=== PATIENT | female | born 1965 | race Caucasian/White ===

== ENCOUNTER 2022-08-11 11:07 | Emergency (ER) | payer OTHER ==
[2022-08-11 11:20] VITALS: RESP 18; TEMP 99.1
--- NOTE | 2022-08-11 12:08 | ED ---
General Adult HPI - General Chief complaint: Extremity Injury, Lower Stated complaint: L knee swelling Time Seen by Provider: 08/11/22 11:27 Source: patient, RN notes reviewed Mode of arrival: ambulatory Limitations: no limitations - History of Present Illness Initial comments: 57-year-old female presents to the emergency department chief complaint of knee pain and swelling 1 day. Past medical history includes fibromyalgia, osteoarthritis. She states that she has had steroid injections in the knee in the past. The last time she had this done was about 8 weeks ago. She states that the pain is worse with walking. She reports she is able to bend at the knee. She also states that about 2 days ago she stepped on her left foot and felt like she heard a crunch. She is reporting some mild tenderness to the lateral portion of her foot. She states that she has Lyrica that she takes for fibromyalgia pain and states that she took this this morning which helped some. She denies numbness, tingling, fever, chills, shortness of breath, chest pain. - Related Data Allergies Allergy/AdvReac Type Severity Reaction Status Date / Time sulfamethoxazole Allergy Rash/Hives Verified 08/11/22 11:20 [From Bactrim] trimethoprim [From Bactrim] Allergy Rash/Hives Verified 08/11/22 11:20 Review of Systems ROS Statement: Those systems with pertinent positive or pertinent negative responses have been documented in the HPI. ROS Other: All systems not noted in ROS Statement are negative. Past Medical History Past Medical History: Rheumatoid Arthritis (RA) Additional Past Medical History / Comment(s): SVT, Fibromyalgia History of Any Multi-Drug Resistant Organisms: None Reported Past Surgical History: No Surgical Hx Reported Past Psychological History: No Psychological Hx Reported Smoking Status: Current every day smoker Past Alcohol Use History: Occasional Past Drug Use History: None Reported General Exam Limitations: no limitations General appearance: alert, in no apparent distress Head exam: Present: atraumatic, normocephalic, normal inspection Eye exam: Present: normal appearance, PERRL, EOMI. Absent: scleral icterus, conjunctival injection, periorbital swelling ENT exam: Present: normal exam, mucous membranes moist Neck exam: Present: normal inspection, full ROM. Absent: tenderness, meningismus, lymphadenopathy Respiratory exam: Present: normal lung sounds bilaterally. Absent: respiratory distress, wheezes, rales, rhonchi, stridor Cardiovascular Exam: Present: regular rate, normal rhythm, normal heart sounds. Absent: systolic murmur, diastolic murmur, rubs, gallop, clicks Extremities exam: Present: full ROM (Full range of motion of the knee, hip, ankle, toes), tenderness (Lateral left foot), normal capillary refill, calf tenderness, other (DP and PT pulses 2+) Back exam: Present: normal inspection Neurological exam: Present: alert, oriented X3 Psychiatric exam: Present: normal affect, normal mood Skin exam: Present: warm, dry, intact, normal color. Absent: rash Course Vital Signs 08/11/22 08/11/22 11:17 14:15 Temperature 99.1 F Pulse Rate 83 69 Respiratory 18 18 Rate Blood Pressure 138/102 141/98 O2 Sat by Pulse 98 98 Oximetry Medical Decision Making - Medical Decision Making Was pt. sent in by a medical professional or institution (Dr. PA, PHYSICAL SECURITY ENGINEER, urgent care, hospital, or half-way...) When possible be specific @ -No Did you speak to anyone other than the patient for history (EMS, parent, family, police, friend...)? What history was obtained from this source @ -No Did you review nursing and triage notes (agree or disagree)? Why? @ -I reviewed and agree with nursing and triage notes Were old charts reviewed (outside hosp., previous admission, EMS record, old EKG, old radiological studies, urgent care reports/EKG's, half-way records)? Report findings @ -No old charts were reviewed Differential Diagnosis (chest pain, altered mental status, abdominal pain women, abdominal pain men, vaginal bleeding, weakness, fever, dyspnea, syncope, headache, dizziness, GI bleed, back pain, seizure, CVA, palpatations, mental health, musculoskeletal)? @ -Differential Musculoskeletal Muscular strain, contusion, ligament sprain, fracture, arthritis, septic arthritis, bursitis, cellulitis, muscle spasm, nerve compression, DVT, arterial occlusion, herpes zoster, electrolyte abnormality, tumor.... This is not meant to be in all inclusive list EKG interpreted by me (3pts min.). @ -none X-rays interpreted by me (1pt min.). @ -XR left foot and knee showed no evidence for acute fracture CT interpreted by me (1pt min.). @ -None done U/S interpreted by me (1pt. min.). @ -US showed no evidence for DVT What testing was considered but not performed or refused? (CT, X-rays, U/S, labs)? Why? @ -None What meds were considered but not given or refused? Why? @ -None Did you discuss the management of the patient with other professionals (professionals i.e. Dr., PA, PHYSICAL SECURITY ENGINEER, lab, RT, psych nurse, older adult social work specialist, assignment desk editor, teacher, parking regulation enforcement officer, assistant case manager)? Give summary @ -No Was smoking cessation discussed for >3mins.? @ -No Was critical care preformed (if so, how long)? @ -No Were there social determinants of health that impacted care today? How? (Homel essness, low income, unemployed, alcoholism, drug addiction, transportation, low edu. Level, literacy, decrease access to med. care, fpc, rehab)? @ -No Was there de-escalation of care discussed even if they declined (Discuss DNR or withdrawal of care, Hospice)? DNR status @ -No What co-morbidities impacted this encounter? (DM, HTN, Smoking, COPD, CAD, Cancer, CVA, ARF, Chemo, Hep., AIDS, mental health diagnosis, sleep apnea, morbid obesity)? @ -None Was patient admitted / discharged? Hospital course, mention meds given and route, prescriptions, significant lab abnormalities, going to OR and other pertinent info. @ -discharged. Patient presented to the emergency department for left knee pain and swelling x1 day. Patient has a history of osteoarthritis and has received injections in the past last one was about 8 weeks ago. There is mild swelling to the left knee without erythema, patient has good passive and active range of motion. X-ray of the left foot and knee show no evidence for acute fracture. Ultrasound of left lower extremity showed no evidence for DVT. Patient was advised on these findings and instructed to use anti-inflammatories and elevate the affected extremity. Patient discharged in stable condition. Case discussed with my attending, Dr. Meyers. Undiagnosed new problem with uncertain prognosis? @ -No Drug Therapy requiring intensive monitoring for toxicity (Heparin, Nitro, Insulin, Cardizem)? @ -No Were any procedures done? @ -No Diagnosis/symptom? @ -knee pain Acute, or Chronic, or Acute on Chronic? @ -acute Uncomplicated (without systemic symptoms) or Complicated (systemic symptoms)? @ -uncomplicated Side effects of treatment? @ -No Exacerbation, Progression, or Severe Exacerbation? @ -No Poses a threat to life or bodily function? How? (Chest pain, [place], [place], pneumonia, PE, COPD, DKA, ARF, appy, cholecystitis, CVA, Diverticulitis, Homicidal, Suicidal, threat to staff... and all critical care pts) @ -No Disposition Clinical Impression: Contusion of knee Disposition: HOME SELF-CARE Condition: Stable Instructions (If sedation given, give patient instructions): Knee Pain (ED) Additional Instructions: Please follow up with your orthopedic provider as needed. Return to the emergency department for new or worsening symptoms. Is patient prescribed a controlled substance at d/c from ED?: No Referrals: Guanako Villalta MD [Primary Care Provider] - 1-2 days Time of Disposition: 14:01
--- NOTE | 2022-08-11 13:03 | XR ---
EXAMINATION TYPE: XR knee complete LT DATE OF EXAM: 08/11/2022 COMPARISON: None HISTORY: Pain, swelling TECHNIQUE: 3 view left knee FINDINGS: No acute fracture or dislocation is evident. Posterior patellar spurring is present superio rly and inferiorly. Joint spaces have mild narrowing. Follow up exams can be performed 7-10 days from acute trauma for continued pain. IMPRESSION: 1. No acute osseous abnormality left knee. 2. Mild degenerative joint changes
--- NOTE | 2022-08-11 13:05 | XR ---
EXAMINATION TYPE: XR foot complete LT DATE OF EXAM: 08/11/2022 COMPARISON: None HISTORY: Injury swelling TECHNIQUE: 3 view left foot FINDINGS: Plantar calcaneal heel spurs are present. Soft tissues appear normal. No acute fracture or dislocation is evident. Joint spaces and mild degenerative change. Follow up exams can be performed 7-10 days from acute trauma for continued pain. IMPRESSION: 1. No acute osseous abnormalities left foot. 2. Plantar calcaneal heel spurs.
[2022-08-11] MEDS ORDERED: KETOROLAC 15 MG/ML 1 ML VIAL IM STA (13:17)
[2022-08-11] MEDS ORDERED: LIDOCAINE 5% PATCH TOPICAL STA (13:17)
--- NOTE | 2022-08-11 13:35 | US ---
EXAMINATION TYPE: US venous doppler duplex LE LT DATE OF EXAM: 08/11/2022 1:13 PM COMPARISON: NONE CLINICAL INDICATION: Female, 56 years old with history of swelling, pain; edema SIDE PERFORMED: Left TECHNIQUE: The lower extremity deep venous system is examined utilizing real time linear array sonog cynthia with graded compression, doppler sonography and color-flow sonography. VESSELS IMAGED: Common Femoral Vein Deep Femoral Vein Greater Saphenous Vein * Femoral Vein Popliteal Vein Small Saphenous Vein * Proximal Calf Veins (* superficial vessels) Left Leg: Negative for DVT IMPRESSION: 1. Left lower extremity ultrasound negative for deep venous thrombosis.
[2022-08-11 14:19] VITALS: BP 141/98; PULSE 69
== END 2022-08-11 14:19 | disposition home or self-care (01) ==
LOC: EDBD 11:07 → EC 11:07
DX: S80.02XA Contusion of left knee, initial encounter (principal); F17.200 Nicotine dependence, unspecified, uncomplicated; Z88.1 Allergy status to other antibiotic agents; Z88.2 Allergy status to sulfonamides; X58.XXXA Exposure to other specified factors, initial encounter
CPT/HCPCS: 99284; 96372; 73562; 73630; 93971; J1885

== ENCOUNTER 2022-10-13 12:21 | Emergency (ER) | payer OTHER ==
[2022-10-13 12:36] VITALS: TEMP 98.9
[2022-10-13] MEDS ORDERED: MECLIZINE 12.5 MG TAB PO STA ×2 (13:08→16:25)
[2022-10-13] MEDS ORDERED: SODIUM CHLORIDE 0.9% 1,000 ML IV STA (13:08)
[2022-10-13] MEDS ORDERED: diphenhydrAMINE 50 MG/ML 1 ML VIAL IVP STA (13:09)
[2022-10-13] MEDS ORDERED: METOCLOPRAMIDE 5 MG/ML 2 ML VIAL IVP STA (13:09)
[2022-10-13] MEDS ORDERED: MAGNESIUM SULFATE-D5W PMX 1 GM in DEXTROSE/WATER 1 100ML.BAG IVPB ONE (13:09)
--- NOTE | 2022-10-13 13:21 | ED ---
General Adult HPI - General Chief complaint: Dizziness Stated complaint: Dizziness, headache Time Seen by Provider: 10/13/22 12:50 Source: patient, RN notes reviewed, old records reviewed Mode of arrival: wheelchair Limitations: no limitations - History of Present Illness Initial comments: Patient is a 56-year-old female with past medical history remarkable for migraines, vertigo, rheumatoid arthritis, SVT, fibromyalgia who presents emergency department for migraine headaches and dizziness. States it is similar to her vertigo symptoms which she has a history of. However has been unrelenting for the last 4-5 days. Patient was seen at urgent care yesterday and was given some medications including a steroid and sumatriptan with some mild improvement in symptoms but they came back today with worsening symptoms to/she presents for evaluation. Describes the headache as a typical ocular migraine type headache that she has had in the past as well as the vertiginous symptoms are worse with certain head movements. Denies any upper respiratory s ymptoms. Denies any chest pain or shortness of breath. Denies abdominal pain. Endorses nausea. Denies any diarrhea or constipation. Denies any head injuries. Is not on blood thinners. Denies any weakness or numbness otherwise. Presents for further evaluation at this time.Patient states headache is sensitive to both light and sound. - Related Data Previous Rx's Medication Instructions Recorded Cephalexin [Keflex] 500 mg PO Q12HR 5 Days #10 cap 10/13/22 Meclizine [Antivert] 25 mg PO TID 7 Days #21 tab 10/13/22 Allergies Allergy/AdvReac Type Severity Reaction Status Date / Time sulfamethoxazole Allergy Rash/Hives Verified 10/13/22 12:36 [From Bactrim] trimethoprim [From Bactrim] Allergy Rash/Hives Verified 10/13/22 12:36 Review of Systems ROS Statement: Those systems with pertinent positive or pertinent negative responses have been documented in the HPI. Review of Systems: CONST: Denies fever EYES: Denies blurry vision ENT: Denies nasal congestion C/V: Denies Chest pain RESP: Denies shortness of breath GI: Denies abdominal pain : Denies dysuria SKIN: Denies rash. MSK: Denies joint pain. NEURO: Endorses headache, vertigo ROS Other: All systems not noted in ROS Statement are negative. Past Medical History Past Medical History: Rheumatoid Arthritis (RA) Additional Past Medical History / Comment(s): SVT, Fibromyalgia, Vertigo History of Any Multi-Drug Resistant Organisms: None Reported Past Surgical History: Orthopedic Surgery Additional Past Surgical History / Comment(s): rt foot Past Psychological History: No Psychological Hx Reported Smoking Status: Current every day smoker Past Alcohol Use History: Occasional Past Drug Use History: None Reported General Exam - General Exam Comments Initial Comments: General: Appears in mild distress. HEAD: Normal with no signs of head trauma. EYES: PERRLA, EOMI, conjunctiva normal, no discharge. Pupils are 3 mm and equal bilaterally. ENT: Hearing grossly intact, normal oropharynx. RESPIRATORY: Clear breath sounds bilaterally. No wheezes, rales, or rhonchi. C/V: Regular rate and rhythm. S1 and S2 auscultated, peripheral pulses 2+ and intact throughout ABD: Abd is soft, nontender, nondistended EXT: Normal range of motion, no obvious deformity SKIN: No rashes or lesions observed on exposed skin. NEURO: Alert and oriented x 4. Cranial nerves II-XII intact. No focal sensory or strength deficits. No nystagmus appreciated. NIH of 0. GCS of 15. Limitations: no limitations Course Vital Signs 10/13/22 10/13/22 12:32 17:04 Temperature 98.9 F Pulse Rate 76 65 Respiratory 20 18 Rate Blood Pressure 128/88 125/64 O2 Sat by Pulse 100 99 Oximetry Medical Decision Making - Medical Decision Making Was pt. sent in by a medical professional or institution (, PA, APPEALS RN, urgent care, hospital, or alf...) When possible be specific @ -No Did you speak to anyone other than the patient for history (EMS, parent, family, police, friend...)? What history was obtained from this source @ -No Did you review nursing and triage notes (agree or disagree)? Why? @ -I reviewed and agree with nursing and triage notes Were old charts reviewed (outside hosp., previous admission, EMS record, old EKG, old radiological studies, urgent care reports/EKG's, alf records)? Report findings @ -No old charts were reviewed Differential Diagnosis (chest pain, altered mental status, abdominal pain women, abdominal pain men, vaginal bleeding, weakness, fever, dyspnea, syncope, headache, dizziness, GI bleed, back pain, seizure, CVA, palpatations, mental health, musculoskeletal)? @ -Differential Dizziness: Benign paroxysmal positional Vertigo, Menieres disease, otitis media, acoustic neuroma, vertebrobasilar insufficiency, cerebellar stroke, encephalitis, hypovolemic, arrhythmia, coronary artery syndrome, anemia, this is not meant to be an all-inclusive list EKG interpreted by me (3pts min.). @ -As above X-rays interpreted by me (1pt min.). @ -Chest x-ray reveals no obvious acute cardio pulmonary process. CT interpreted by me (1pt min.). @ -CT brain reveals no obvious acute intracranial process. CT angiogram also reveals no obvious acute intracranial process. U/S interpreted by me (1pt. min.). @ -None done What testing was considered but not performed or refused? (CT, X-rays, U/S, labs)? Why? @ -None What meds were considered but not given or refused? Why? @ -None Did you discuss the management of the patient with other professionals (professionals i.e. , PA, APPEALS RN, lab, RT, psych nurse, mental health social worker, client services director, teacher, correctional officer sergeant, porter sample case)? Give summary @ -No Was smoking cessation discussed for >3mins.? @ -No Was critical care preformed (if so, how long)? @ -No Were there social determinants of health that impacted care today? How? (Homelessness, low income, unemployed, alcoholism, drug addiction, transportation, low edu. Level, literacy, decrease access to med. care, [facility], r ehab)? @ -No Was there de-escalation of care discussed even if they declined (Discuss DNR or withdrawal of care, Hospice)? DNR status @ -No What co-morbidities impacted this encounter? (DM, HTN, Smoking, COPD, CAD, Cancer, CVA, ARF, Chemo, Hep., AIDS, mental health diagnosis, sleep apnea, morbid obesity)? @ -Migraines, vertigo Was patient admitted / discharged? Hospital course, mention meds given and route, prescriptions, significant lab abnormalities, going to OR and other pertinent info. @ -Based on the patient's presentation and physical exam, I'm concerned for what seems like her typical migraine vertigo but with what is atypical for the patient is that she is having symptoms ongoing for the last 4-5 days. I did discuss workup options with her mother both agree to obtain CT imaging to rule out any sort of intracranial central cause of vertigo and headache. We'll obtain basic labs, screening EKG, chest x-ray as well as empirically treated the patient with IV Benadryl, magnesium, Reglan and fluids as well as her with meclizine for her symptoms. Patient was in agreement this plan. Vital signs within acceptable limits. Vital signs within acceptable limits. Patient's agreement this plan. EKG showed no signs of acute ischemia.Patient's imaging is unremarkable. Patient's labs are also within acceptable limits. Urine is still pending. I discussed results with the patient. She is feeling improved. She can ambulate without difficulty. Headache is almost resolved. Vertigo is also almost resolved. She would like to go home and she doesn't to his migraines and vertigo but feels well enough. I did offer admission however she would like to go home. I believe this is reasonable. Strict return precautions discussed. I will call her with her urine result. She'll be discharged home with a prescription for meclizine. Patient's urine did resolve and showed findings concerning for UTI. Patient will be started on Keflex. I called her and notified her of the results and she expressed understanding. She can cotton picker her prescription at her pharmacist. I will provide the patient with a prescription for Keflex, meclizine. I instructed the patient to follow up with their PCP in the next 1-3 days. I exp lained that the patient should return to the emergency department if they experience any worsening symptoms. Strict return precautions were discussed with the patient. The patient expressed understanding of these instructions. I answered all questions that the patient had. The patient was discharged home in good condition with their prescriptions and follow up information. Undiagnosed new problem with uncertain prognosis? @ -No Drug Therapy requiring intensive monitoring for toxicity (Heparin, Nitro, Insulin, Cardizem)? @ -No Were any procedures done? @ -No Diagnosis/symptom? @ -Migraine, vertigo Acute, or Chronic, or Acute on Chronic? @ -Acute on chronic Uncomplicated (without systemic symptoms) or Complicated (systemic symptoms)? @ -Complicated Side effects of treatment? @ -none Exacerbation, Progression, or Severe Exacerbation] @ -no Poses a threat to life or bodily function? @ -no Diagnosis/symptom? @ -UTI Acute, or Chronic, or Acute on Chronic? @ -Acute Uncomplicated (without systemic symptoms) or Complicated (systemic symptoms)? @ -Complicated Side effects of treatment? @ -none Exacerbation, Progression, or Severe Exacerbation] @ -no Poses a threat to life or bodily function? @ -no - Lab Data Result diagrams: 10/13/22 13:27 10/13/22 13:27 Lab Results 10/13/22 10/13/22 10/13/22 Range/Units 13:27 13:27 13:27 WBC 10.9 H (3.8-10.6) k/uL RBC 4.23 (3.80-5.40) m/uL Hgb 13.5 (11.4-16.0) gm/dL Hct 41.5 (34.0-46.0) % MCV 98.1 (80.0-100.0) fL MCH 32.0 (25.0-35.0) pg MCHC 32.6 (31.0-37.0) g/dL RDW 12.7 (11.5-15.5) % Plt Count 259 (150-450) k/uL MPV 8.0 Neutrophils % 78 % Lymphocytes % 15 % Monocytes % 5 % Eosinophils % 2 % Basophils % 0 % Neutrophils # 8.5 H (1.3-7.7) k/uL Lymphocytes # 1.6 (1.0-4.8) k/uL Monocytes # 0.5 (0-1.0) k/uL Eosinophils # 0.2 (0-0.7) k/uL Basophils # 0.0 (0-0.2) k/uL Sodium 139 (137-145) mmol/L Potassium 3.8 (3.5-5.1) mmol/L Chloride 107 (98-107) mmol/L Carbon Dioxide 24 (22-30) mmol/L Anion Gap 8 mmol/L BUN 20 H (7-17) mg/dL Creatinine 0.59 (0.52-1.04) mg/dL Est GFR (CKD-EPI)AfAm >90 (>60 ml/min/1.73 sqM) Est GFR (CKD-EPI)NonAf >90 (>60 ml/min/1.73 sqM) Glucose 103 H (74-99) mg/dL Calcium 9.6 (8.4-10.2) mg/dL Total Bilirubin 0.4 (0.2-1.3) mg/dL AST 26 (14-36) U/L ALT 21 (4-34) U/L Alkaline Phosphatase 48 (38-126) U/L Total Protein 7.3 (6.3-8.2) g/dL Albumin 4.2 (3.5-5.0) g/dL Urine Color Urine Appearance (Clear) Urine pH (5.0-8.0) Ur Specific [place] (1.001-1.035) Urine Protein (Negative) Urine Glucose (UA) (Negative) Urine Ketones (Negative) Urine Blood (Negative) Urine Nitrite (Negative) Urine Bilirubin (Negative) Urine Urobilinogen (<2.0) mg/dL Ur Leukocyte Esterase (Negative) Urine RBC (0-5) /hpf Urine WBC (0-5) /hpf Ur Squamous Epith Cells (0-4) /hpf Urine Mucus (None) /hpf Influenza Type A (PCR) Not Detected (Not Detectd) Influenza Type B (PCR) Not Detected (Not Detectd) RSV (PCR) Not Detected (Not Detectd) SARS-CoV-2 (PCR) Not Detected (Not Detectd) 10/13/22 Range/Units 15:50 WBC (3.8-10.6) k/uL RBC (3.80-5.40) m/uL Hgb (11.4-16.0) gm/dL Hct (34.0-46.0) % MCV (80.0-100.0) fL MCH (25.0-35.0) pg MCHC (31.0-37.0) g/dL RDW (11.5-15.5) % Plt Count (150-450) k/uL MPV Neutrophils % % Lymphocytes % % Monocytes % % Eosinophils % % Basophils % % Neutrophils # (1.3-7.7) k/uL Lymphocytes # (1.0-4.8) k/uL Monocytes # (0-1.0) k/uL Eosinophils # (0-0.7) k/uL Basophils # (0-0.2) k/uL Sodium (137-145) mmol/L Potassium (3.5-5.1) mmol/L Chloride (98-107) mmol/L Carbon Dioxide (22-30) mmol/L Anion Gap mmol/L BUN (7-17) mg/dL Creatinine (0.52-1.04) mg/dL Est GFR (CKD-EPI)AfAm (>60 ml/min/1.73 sqM) Est GFR (CKD-EPI)NonAf (>60 ml/min/1.73 sqM) Glucose (74-99) mg/dL Calcium (8.4-10.2) mg/dL Total Bilirubin (0.2-1.3) mg/dL AST (14-36) U/L ALT (4-34) U/L Alkaline Phosphatase (38-126) U/L Total Protein (6.3-8.2) g/dL Albumin (3.5-5.0) g/dL Urine Color Colorless Urine Appearance Cloudy H (Clear) Urine pH 5.5 (5.0-8.0) Ur Specific [place] >1.050 H (1.001-1.035) Urine Protein Trace H (Negative) Urine Glucose (UA) Negative (Negative) Urine Ketones Negative (Negative) Urine Blood Trace H (Negative) Urine Nitrite Negative (Negative) Urine Bilirubin Negative (Negative) Urine Urobilinogen <2.0 (<2.0) mg/dL Ur Leukocyte Esterase Large H (Negative) Urine RBC 52 H (0-5) /hpf Urine WBC >182 H (0-5) /hpf Ur Squamous Epith Cells 10 H (0-4) /hpf Urine Mucus Rare H (None) /hpf Influenza Type A (PCR) (Not Detectd) Influenza Type B (PCR) (Not Detectd) RSV (PCR) (Not Detectd) SARS-CoV-2 (PCR) (Not Detectd) - EKG Data -: EKG Interpreted by Me EKG Comments: 12-lead Electrocardiogram Interpretation Note EKG was reviewed and interpreted by myself. 12-lead ECG performed at 1243 is interpreted by me as revealing normal sinus rhythm at a rate of 70 beats per minute. Cook is normal. SC interval is 150 ms, QRS durations 118 ms, QTc is 418 ms.. There were no ST or T wave abnormalities to suggest myocardial ischemia or injury. R wave progression across the precordium was satisfactory. By my interpretation this EKG is non-diagnostic for acute ischemia. Disposition Clinical Impression: Vertigo, Migraine, UTI (urinary tract infection) Disposition: HOME SELF-CARE Condition: Good Instructions (If sedation given, give patient instructions): Dizziness (ED) Prescriptions: Meclizine [Antivert] 25 mg PO TID 7 Days #21 tab Cephalexin [Keflex] 500 mg PO Q12HR 5 Days #10 cap Is patient prescribed a controlled substance at d/c from ED?: No Referrals: Guanako Villalta MD [Primary Care Provider] - 1-2 days Time of Disposition: 16:06
[2022-10-13 14:16] LABS: Basophils % (A) 0 %; Eosinophils # (A) 0.2 k/uL (0-0.7); Eosinophils % (A) 2 %; HCT 41.5 % (34.0-46.0); HGB 13.5 gm/dL (11.4-16.0); Lymphocytes # (A) 1.6 k/uL (1.0-4.8); Lymphocytes % (A) 15 %; MCHC 32.6 g/dL (31.0-37.0); MCV 98.1 fL (80.0-100.0); Monocytes # (A) 0.5 k/uL (0-1.0); Monocytes % (A) 5 %; Neutrophils # (A) 8.5 k/uL (1.3-7.7); Neutrophils % (A) 78 %; Platelet Count 259 k/uL (150-450); RBC 4.23 m/uL (3.80-5.40); RDW 12.7 % (11.5-15.5); WBC 10.9 k/uL (3.8-10.6)
[2022-10-13 14:34] LABS: ALT 21 U/L (4-34); AST 26 U/L (14-36); African American GFR (CKD) >90 (>60 ml/min/1.73 sqM); Albumin 4.2 g/dL (3.5-5.0); Alkaline Phosphatase 48 U/L (38-126); Anion Gap 8 mmol/L; Blood Urea Nitrogen 20 mg/dL (7-17); Calcium 9.6 mg/dL (8.4-10.2); Carbon Dioxide 24 mmol/L (22-30); Chloride 107 mmol/L (98-107); Glucose 103 mg/dL (74-99); Non-African American GFR(CKD) >90 (>60 ml/min/1.73 sqM); Potassium 3.8 mmol/L (3.5-5.1); Sodium 139 mmol/L (137-145); Total Bilirubin 0.4 mg/dL (0.2-1.3); Total Protein 7.3 g/dL (6.3-8.2)
--- NOTE | 2022-10-13 15:05 | XR ---
EXAMINATION TYPE: XR chest 1V portable DATE OF EXAM: 10/13/2022 3:02 PM COMPARISON: None TECHNIQUE: XR chest 1V portable Portable AP radiograph of the chest. CLINICAL INDICATION:Female, 56 years old with history of dizzy, lightheaded; FINDINGS: Lungs/Pleura: There is no evidence of pleural effusion, focal consolidation, or pneumothorax. Pulmonary vascularity: Unremarkable. Heart/mediastinum: Cardiomediastinal silhouette is unremarkable. Musculoskeletal: No acute osseous pathology. IMPRESSION: No acute cardiopulmonary disease/process.
--- NOTE | 2022-10-13 15:33 | CT ---
EXAMINATION TYPE: CT brain wo con CT DLP: 1158.6 mGycm, Automated exposure control for dose reduction was used. DATE OF EXAM: 10/13/2022 3:27 PM COMPARISON: None. CLINICAL INDICATION:Female, 56 years old with history of vertigo, dizziness poss vertigo episode TECHNIQUE: Brain: Multiple axial CT images of the brain were obtained without IV contrast. Coronal and sagittal reformats reviewed. FINDINGS: Brain: Extra-axial spaces: No abnormal extra-axial fluid collections. Ventricular system: Within normal limits Cerebral parenchyma: No acute intraparenchymal hemorrhage or mass effect. The reyes-white junction is well differentiated. Scattered hypoattenuating areas are seen within the white matter. Cerebellum: Unremarkable. Mass effect: No evidence of midline shift. Intracranial vasculature: Atherosclerotic calcifications of the intracranial vessels. Soft tissues: Normal. Calvarium/osseous structures: No depressed skull fracture. Paranasal sinuses and mastoid air cells: Mild scattered paranasal sinus disease. Visualized orbits: Orbital contents are intact. IMPRESSION: 1. No acute intracranial process. 2. Nonspecific white matter changes, likely secondary to chronic small vessel ischemic disease.
--- NOTE | 2022-10-13 15:46 | CT ---
EXAMINATION TYPE: CT angio head neck CT DLP: 623.9 mGycm, Automated exposure control for dose reduction was used. DATE OF EXAM: 10/13/2022 3:38 PM COMPARISON: CT head of the same date. CLINICAL INDICATION:Female, 56 years old with history of vertigo; PHH, dizziness poss vertigo episode TECHNIQUE: Axially acquired helical CT angiogram of the head and neck was obtained with contrast util izing 75 cc of Isovue-370 administered intravenously. Axial images are supplemented with 3D reconstru ctions which were post-processed at an independent workstation. NASCET criteria used. FINDINGS: CTA HEAD: No evidence of acute intracranial hemorrhage, mass effect, or midline shift. The ventricles, sulci, a nd cisterns are unremarkable. The visualized portions of the internal carotid arteries, middle cerebral arteries, anterior cerebral arteries, and posterior cerebral arteries are patent. The basilar and vertebral arteries are patent. CTA NECK: Right Carotid System: The common carotid artery and external carotid artery are patent. Mild calcified plaque at the caroti d bulb. The carotid bifurcation demonstrates no evidence of hemodynamically significant stenosis. The remaining portions of the internal carotid artery demonstrate normal size without significant narrow ing. Left Carotid System: The common carotid artery and external carotid artery are patent. Mild calcified plaque at the caroti d bulb. The carotid bifurcation demonstrates no evidence of hemodynamically significant stenosis. The remaining portions of the internal carotid artery demonstrate normal size without significant narrow ing. Vertebral arteries are patent without evidence hemodynamically significant stenosis. There is a bovine aortic arch. The origins of the great vessels are patent. No evidence of hemodynami scottie significant stenosis. IMPRESSION: 1. No evidence of dissection of the cervical internal carotid arteries or vertebral arteries or any e vidence of significant stenosis at the carotid bifurcations. 2. No evidence of high-grade stenosis or intracranial aneurysm.
[2022-10-13] MEDS ORDERED: KETOROLAC 15 MG/ML 1 ML VIAL IVP STA (15:56)
[2022-10-13 16:16] LABS: Appearance,Urine Cloudy (Clear); Bilirubin,Urine Negative (Negative); Blood,Urine Trace (Negative); Color,Urine Colorless; Glucose,Urine (UA) Negative (Negative); Ketones,Urine Negative (Negative); Leukocyte Esterase,Urine Large (Negative); Mucus,Urine Rare /hpf; Nitrite,Urine Negative (Negative); PH, Urine 5.5 (5.0-8.0); Protein,Urine Trace (Negative); RBC,Urine 52 /hpf (0-5); Squamous Epithelial Cell,Urine 10 /hpf (0-4); Urobilinogen,Urine <2.0 mg/dL (<2.0); WBC,Urine >182 /hpf (0-5)
[2022-10-13 16:46] LABS: Specific Gravity,Urine >1.050 (1.001-1.035)
[2022-10-13 17:07] VITALS: BP 125/64; PULSE 65; RESP 18
== END 2022-10-13 17:07 | disposition home or self-care (01) ==
LOC: EC 12:21
DX: R42 Dizziness and giddiness (principal); G43.909 Migraine, unspecified, not intractable, without status migrainosus; N39.0 Urinary tract infection, site not specified; F17.200 Nicotine dependence, unspecified, uncomplicated; Z88.2 Allergy status to sulfonamides; Z88.1 Allergy status to other antibiotic agents; Z20.822 Contact with and (suspected) exposure to COVID-19
CPT/HCPCS: 36415; 93005; 80053; 85025; 81001; 87086; 87636; 71045; 70496; 70450; 70498; 99284; 96365; 96375 ×3; J1200; J2765; J3475; J1885; Q9967

== ENCOUNTER → 2023-03-26 | Outpatient (CLI) | payer OTHER ==
--- NOTE | 2023-03-28 10:06 | MR ---
EXAMINATION TYPE: MR knee RT wo con DATE OF EXAM: 03/26/2023 COMPARISON: None HISTORY: Left and Right inner knee pain x 3 years TECHNIQUE: Multiplanar, multisequence imaging of the right knee is performed without contrast. FINDINGS: Medial meniscus: No tear. Degenerative signal throughout the body and posterior horn of the medial me niscus. Medial compartment cartilage: Full thickness loss of medialmost aspect of the medial tibial plateau c artilage. High-grade loss throughout the remainder of the medial tibial plateau and the medial femora l condyle. Medial collateral ligament: Intact. Lateral meniscus: Intact. Lateral compartment cartilage: Thinning and partial thickness fissuring throughout the lateral compar tment cartilage Lateral collateral ligament: Intact. Patellofemoral alignment: Normal. Patellofemoral compartment cartilage: High-grade thinning throughout the patellofemoral cartilage. Extensor mechanism: Normal. Anterior cruciate ligament: Intact. Posterior cruciate ligament: Intact. Bone marrow: Normal. Soft tissues: Increased signal in the popliteus tendon, relating to tendinosis.. No joint effusion. M edium-large Clemente's cyst. Neurovascular: Normal. IMPRESSION: 1. 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 2. Popliteus tendinosis. 3. Degenerative changes in the medial meniscus, no discrete linear tear. 4. Clemente's cyst.
--- NOTE | 2023-03-28 10:14 | MR ---
EXAMINATION TYPE: MR knee LT wo con DATE OF EXAM: 03/26/2023 COMPARISON: Left knee radiograph 08/11/2022 HISTORY: Left and Right inner knee pain x 3 years TECHNIQUE: Multiplanar, multisequence imaging of the left knee is performed without contrast. FINDINGS: Medial meniscus: Nondisplaced horizontal flap tear of the medial meniscus body contacting the tibial articular surface. Medial compartment cartilage: High-grade thinning throughout the medial compartment cartilage. Medial collateral ligament: Intact. Lateral meniscus: Degenerative signal and degenerative blunting within the lateral meniscus body Lateral compartment cartilage: Partial-thickness thinning and fissuring in the lateral compartment ca rtilage Lateral collateral ligament: Intact. Patellofemoral alignment: Normal. Patellofemoral compartment cartilage: High-grade thinning throughout the patellofemoral cartilage Extensor mechanism: Normal. Anterior cruciate ligament: Intact. Posterior cruciate ligament: Intact. Bone marrow: Normal. Soft tissues: Conglomeration of tiny ganglion cyst posterior aspect of the joint measuring 1.9 x 3 cm (TV x CC). No joint effusion. Small Clemente's cyst. Neurovascular: Normal. IMPRESSION: 1. Nondisplaced horizontal tear of the medial meniscus body. 2. Degenerative signal/blunting within the lateral meniscus body. 3. Tricompartmental chondromalacia 4. Small Clemente's cyst. 5. Posterior ganglion cysts
== END | disposition home or self-care (01) ==
LOC: RADMRIMAIN 20:45
PROVIDERS: ATTEND Orthopaedic Surgery
DX: M17.0 Bilateral primary osteoarthritis of knee (principal); M94.261 Chondromalacia, right knee; M71.21 Synovial cyst of popliteal space [Baker], right knee; M67.863 Other specified disorders of tendon, right knee; M67.462 Ganglion, left knee; M94.262 Chondromalacia, left knee; M23.304 Other meniscus derangements, unspecified medial meniscus, left knee; M71.22 Synovial cyst of popliteal space [Baker], left knee

== ENCOUNTER 2023-05-23 09:16 | Observation (INO) | payer OTHER ==
--- NOTE | 2023-05-23 09:38 | ED ---
General Adult HPI - General Chief complaint: Chest Pain Stated complaint: Chest Pains Time Seen by Provider: 05/23/23 09:23 Source: patient, RN notes reviewed Mode of arrival: ambulatory Limitations: no limitations - History of Present Illness Initial comments: Patient is a pleasant 57-year-old female presented emergency department with chest discomfort. Onset was mild through the night however worse this morning when she got up around 630. Discomfort is rated 6/10. Discomfort is somewhat sharp left sternal region. Patient unclear if she has been sweaty with this secondary to being perimenopausal. No calf pain or swelling. No cough or upper respiratory issues. No history of similar symptoms previously - Related Data Home Medications Medication Instructions Recorded Confirmed Cetirizine HCl [Zyrtec] 10 mg PO DAILY 05/23/23 05/23/23 Metoprolol Succinate (ER) [Toprol 100 mg PO DAILY 05/23/23 05/23/23 Xl] Omeprazole [PriLOSEC] 40 mg PO DAILY 05/23/23 05/23/23 Pregabalin [Lyrica] 100 mg PO DAILY 05/23/23 05/23/23 Pregabalin [Lyrica] 100 mg PO DAILY PRN 05/23/23 05/23/23 Semaglutide [Wegovy] 2.4 mg SQ WE 05/23/23 05/23/23 Venlafaxine HCl ER [Effexor Xr] 150 mg PO DAILY 05/23/23 05/23/23 amLODIPine [Norvasc] 2.5 mg PO DAILY 05/23/23 05/23/23 clonazePAM [KlonoPIN] 0.5 mg PO DAILY PRN 05/23/23 05/23/23 traMADol HCL 50 mg PO HS 05/23/23 05/23/23 Allergies Allergy/AdvReac Type Severity Reaction Status Date / Time sulfamethoxazole Allergy Rash/Hives/ Verified 05/23/23 10:33 [From Bactrim] Itchy/SOB trimethoprim [From Bactrim] Allergy Rash/Hives/ Verified 05/23/23 10:33 Itchy/SOB Review of Systems ROS Statement: Those systems with pertinent positive or pertinent negative responses have been documented in the HPI. ROS Other: All systems not noted in ROS Statement are negative. Constitutional: Denies: fever Eyes: Denies: eye pain Respiratory: Denies: dyspnea Cardiovascular: Reports: as per HPI, chest pain Endocrine: Reports: fatigue Past Medical History Past Medical History: Rheumatoid Arthritis (RA) Additional Past Medical History / Comment(s): SVT, Fibromyalgia, Vertigo History of Any Multi-Drug Resistant Organisms: None Reported Past Surgical History: Orthopedic Surgery Additional Past Surgical History / Comment(s): rt foot Past Psychological History: No Psychological Hx Reported Smoking Status: Current every day smoker Past Alcohol Use History: Occasional Past Drug Use History: None Reported General Exam Limitations: no limitations General appearance: alert, in no apparent distress Head exam: Present: normocephalic Eye exam: Present: normal appearance Neck exam: Present: normal inspection Respiratory exam: Present: normal lung sounds bilaterally, chest wall tenderness (Mild left sternal) Cardiovascular Exam: Present: regular rate, normal rhythm, normal heart sounds Expanded Peripheral pulses: 2+: Radial (R), Radial (L), Dorsalis Pedis (R), Dorsalis Pedis (L) GI/Abdominal exam: Present: soft. Absent: tenderness Extremities exam: Present: normal inspection. 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 sent in by a medical professional or institution (, PA, MANAGER NIGHT, urgent care, hospital, or custodial...) When possible be specific @ -No Did you speak to anyone other than the patient for history (EMS, parent, family, police, friend...)? What history was obtained from this source @ -No Did you review nursing and triage notes (agree or disagree)? Why? @ -I reviewed and agree with nursing and triage notes Were old charts reviewed (outside hosp., previous admission, EMS record, old EKG, old radiological studies, urgent care reports/EKG's, custodial records)? Report findings @ -Previous chest x-ray reviewed does not reveal any acute findings, similar to today's Differential Diagnosis (chest pain, altered mental status, abdominal pain women, abdominal pain men, vaginal bleeding, weakness, fever, dyspnea, syncope, headache, dizziness, GI bleed, back pain, seizure, CVA, palpatations, mental health, musculoskeletal)? @ -Differential Chest Pain: Stable Angina, Unstable Angina, STEMI, NSTEMI Aortic Dissection, Pneumothorax, Musculoskeletal, Esophageal Spasm GERD, Cholecystitis, Pancreatitis, Zoster, this is not meant to be an all-inclusive list. EKG interpreted by me (3pts min.). @ -As above X-rays interpreted by me (1pt min.). @ -Chest x-ray shows no acute process CT interpreted by me (1pt min.). @ -None done U/S interpreted by me (1pt. min.). @ -None done What testing was considered but not performed or refused? (CT, X-rays, U/S, labs)? Why? @ -None What meds were considered but not given or refused? Why? @ -None Did you discuss the management of the patient with other professionals (professionals i.e. , PA, MANAGER NIGHT, lab, RT, psych nurse, social media developer, non profit director, teacher, ship officer, case filler)? Give summary @ -Was discussed with Dr. Ferrer who will admit covering hospital call Was smoking cessation discussed for >3mins.? @ -No Was critical care preformed (if so, how long)? @ -No Were there social determinants of health that impacted care today? How? (Homelessness, low income, unemployed, alcoholism, drug addiction, transportation, low edu. Level, literacy, decrease access to med. care, shelter, rehab)? @ -No Was there de-escalation of care discussed even if they declined (Discuss DNR or withdrawal of care, Hospice)? DNR status @ -No What co-morbidities impacted this encounter? (DM, HTN, Smoking, COPD, CAD, Cancer, CVA, ARF, Chemo, Hep., AIDS, mental health diagnosis, sleep apnea, morbid obesity)? @ -None Was patient admitted / discharged? Hospital course, mention meds given and route, prescriptions, significant lab abnormalities, going to OR and other pertinent info. @ -Patient reevaluated and not much change. Patient is updated on results and plan. Patient will be admitted with cardiac consult. [place] orders written. Undiagnosed new problem with uncertain prognosis? @ -No Drug Therapy requiring intensive monitoring for toxicity (Heparin, Nitro, Insulin, Cardizem)? @ -No Were any procedures done? @ -No Diagnosis/symptom? @ -Chest pain Acute, or Chronic, or Acute on Chronic? @ -Acute Uncomplicated (without systemic symptoms) or Complicated (systemic symptoms)? @ -Default Side effects of treatment? @ -No Exacerbation, Progression, or Severe Exacerbation? @ -No Poses a threat to life or bodily function? How? (Chest pain, [place], [place], pneumonia, PE, COPD, DKA, ARF, appy, cholecystitis, CVA, Diverticulitis, Homicidal, Suicidal, threat to staff... and all critical care pts) @ -No - Lab Data Result diagrams: 05/23/23 09:47 05/23/23 09:47 Lab Results 05/23/23 05/23/23 05/23/23 Range/Units 09:47 09:47 09:47 WBC 8.8 (3.8-10.6) k/uL RBC 4.13 (3.80-5.40) m/uL Hgb 13.0 (11.4-16.0) gm/dL Hct 39.2 (34.0-46.0) % MCV 94.9 (80.0-100.0) fL MCH 31.4 (25.0-35.0) pg MCHC 33.1 (31.0-37.0) g/dL RDW 12.7 (11.5-15.5) % Plt Count 254 (150-450) k/uL MPV 7.3 Neutrophils % 69 % Lymphocytes % 22 % Monocytes % 5 % Eosinophils % 2 % Basophils % 0 % Neutrophils # 6.0 (1.3-7.7) k/uL Lymphocytes # 1.9 (1.0-4.8) k/uL Monocytes # 0.4 (0-1.0) k/uL Eosinophils # 0.2 (0-0.7) k/uL Basophils # 0.0 (0-0.2) k/uL PT 9.6 L (10.0-12.5) sec INR 0.8 (<1.2) APTT 24.3 (22.0-30.0) sec D-Dimer 0.50 (<0.60) mg/L FEU Sodium 139 (137-145) mmol/L Potassium 4.0 (3.5-5.1) mmol/L Chloride 108 H (98-107) mmol/L Carbon Dioxide 24 (22-30) mmol/L Anion Gap 7 mmol/L BUN 16 (7-17) mg/dL Creatinine 0.60 (0.52-1.04) mg/dL Est GFR (CKD-EPI)AfAm >90 (>60 ml/min/1.73 sqM) Est GFR (CKD-EPI)NonAf >90 (>60 ml/min/1.73 sqM) Glucose 110 H (74-99) mg/dL Calcium 9.0 (8.4-10.2) mg/dL Magnesium 2.1 (1.6-2.3) mg/dL Total Bilirubin 0.3 (0.2-1.3) mg/dL AST 30 (14-36) U/L ALT 16 (4-34) U/L Alkaline Phosphatase 52 (38-126) U/L Troponin I (0.000-0.034) ng/mL Total Protein 6.5 (6.3-8.2) g/dL Albumin 3.9 (3.5-5.0) g/dL 05/23/23 Range/Units 09:47 WBC (3.8-10.6) k/uL RBC (3.80-5.40) m/uL Hgb (11.4-16.0) gm/dL Hct (34.0-46.0) % MCV (80.0-100.0) fL MCH (25.0-35.0) pg MCHC (31.0-37.0) g/dL RDW (11.5-15.5) % Plt Count (150-450) k/uL MPV Neutrophils % % Lymphocytes % % Monocytes % % Eosinophils % % Basophils % % Neutrophils # (1.3-7.7) k/uL Lymphocytes # (1.0-4.8) k/uL Monocytes # (0-1.0) k/uL Eosinophils # (0-0.7) k/uL Basophils # (0-0.2) k/uL PT (10.0-12.5) sec INR (<1.2) APTT (22.0-30.0) sec D-Dimer (<0.60) mg/L FEU Sodium (137-145) mmol/L Potassium (3.5-5.1) mmol/L Chloride (98-107) mmol/L Carbon Dioxide (22-30) mmol/L Anion Gap mmol/L BUN (7-17) mg/dL Creatinine (0.52-1.04) mg/dL Est GFR (CKD-EPI)AfAm (>60 ml/min/1.73 sqM) Est GFR (CKD-EPI)NonAf (>60 ml/min/1.73 sqM) Glucose (74-99) mg/dL Calcium (8.4-10.2) mg/dL Magnesium (1.6-2.3) mg/dL Total Bilirubin (0.2-1.3) mg/dL AST (14-36) U/L ALT (4-34) U/L Alkaline Phosphatase (38-126) U/L Troponin I <0.012 (0.000-0.034) ng/mL Total Protein (6.3-8.2) g/dL Albumin (3.5-5.0) g/dL Disposition Clinical Impression: Chest pain Disposition: ADMITTED IP TO THIS [facility] Is patient prescribed a controlled substance at d/c from ED?: No Referrals: Oneil Schumacher DO [Primary Care Provider] - 1-2 days Time of Disposition: 12:20
[2023-05-23] MEDS: ASPIRIN 81 MG PO STA (09:50)
[2023-05-23] MEDS: NITROGLYCERIN SL TABS 0.4 MG TAB SUBLINGUAL STA ×3 (09:50→10:00)
[2023-05-23 09:54] LABS: Basophils % (A) 0 %; Eosinophils # (A) 0.2 k/uL (0-0.7); Eosinophils % (A) 2 %; HCT 39.2 % (34.0-46.0); Lymphocytes # (A) 1.9 k/uL (1.0-4.8); Lymphocytes % (A) 22 %; MCH 31.4 pg (25.0-35.0); MCHC 33.1 g/dL (31.0-37.0); MCV 94.9 fL (80.0-100.0); Mean Platelet Volume 7.3; Monocytes # (A) 0.4 k/uL (0-1.0); Monocytes % (A) 5 %; Neutrophils % (A) 69 %; Platelet Count 254 k/uL (150-450); RBC 4.13 m/uL (3.80-5.40); RDW 12.7 % (11.5-15.5); WBC 8.8 k/uL (3.8-10.6)
[2023-05-23 10:11] LABS: INR 0.8 (<1.2); Partial Thromboplastin Time 24.3 sec (22.0-30.0); Prothrombin Time 9.6 sec (10.0-12.5)
--- NOTE | 2023-05-23 10:37 | XR ---
EXAMINATION TYPE: XR chest 2V DATE OF EXAM: 05/23/2023 COMPARISON: NONE HISTORY: Chest pain TECHNIQUE: Frontal and lateral views of the chest are obtained. FINDINGS: There is no focal air space opacity. No evidence for pneumothorax. No pleural effusion. The cardiac silhouette size is within normal limits. The osseous structures are grossly intact. IMPRESSION: 1. No acute cardiopulmonary process.
[2023-05-23 10:47] LABS: ALT 16 U/L (4-34); AST 30 U/L (14-36); African American GFR (CKD) >90 (>60 ml/min/1.73 sqM); Albumin 3.9 g/dL (3.5-5.0); Alkaline Phosphatase 52 U/L (38-126); Anion Gap 7 mmol/L; Blood Urea Nitrogen 16 mg/dL (7-17); Carbon Dioxide 24 mmol/L (22-30); Chloride 108 mmol/L (98-107); Glucose 110 mg/dL (74-99); Magnesium 2.1 mg/dL (1.6-2.3); Non-African American GFR(CKD) >90 (>60 ml/min/1.73 sqM); Sodium 139 mmol/L (137-145); Total Bilirubin 0.3 mg/dL (0.2-1.3); Total Protein 6.5 g/dL (6.3-8.2)
[2023-05-23] MEDS: LORazepam 1 MG TAB PO STA (11:10)
[2023-05-23] MEDS: ACETAMINOPHEN TAB 500 MG TAB PO STA (11:10)
[2023-05-23] MEDS ORDERED: NITROGLYCERIN SL TABS 0.4 MG TAB SUBLINGUAL PRN (12:20)
[2023-05-23] MEDS ORDERED: clonazePAM 0.5 MG TAB PO PRN (12:32)
[2023-05-23] MEDS: MORPHINE SULFATE 4 MG/ML SYRINGE IVP STA (13:04)
[2023-05-23] MEDS ORDERED: IBUPROFEN 400 MG TAB PO PRN (13:13)
[2023-05-23] MEDS ORDERED: ACETAMINOPHEN TAB 325 MG TAB PO PRN (13:13)
[2023-05-23] MEDS: KETOROLAC 15 MG/ML 1 ML VIAL IVP STA (13:25)
[2023-05-23] MEDS: CAPSAICIN 0.025% CREAM 60 GM TUBE TOPICAL SCH (15:12)
--- NOTE | 2023-05-23 16:56 | P.HPIM ---
History of Present Illness This is a pleasant 57 years old female with multiple medical problems who presents because of chest pain. Patient states chest pain started this morning around 3:00, waking her up in the middle of the night. On admission her pain was rated 8/10, currently much better around 2/10. On the left side there were no gross purchase and the sternum Patient specifically complains from tenderness in her lower sternum No precipitating or relieving factors when asked the patient She is also a smoker and she smokes somewhere between 2 to 10 cigarettes/day depending on that day. No alcohol or illicit drugs to report Patient denies any urinary or GI symptoms. No headache dizziness weakness or numbness No dyspnea or coughing. Also patient complaining of from right hip pain and she is having for several week, she denies trauma or fall she related to her chronic pain in her both knees most likely related to her osteoarthritis Patient vitals stable Serial troponin x 3 are negative less than 0.012 She has unremarkable CBC BMP LFT and INR D-dimer -0.5 Chest x-ray showing no acute process EKG sinus rhythm at [address]-T changes Patient currently on aspirin 325 mg Review of Systems Review of systems CONSTITUTIONAL: No fever, no malaise, no fatigue. HEENT: No recent visual problems or hearing problems. Denied any sore throat. CARDIOVASCULAR: No orthopnea, PND, no palpitations, no syncope. PULMONARY: No shortness of breath, no cough, no hemoptysis. GASTROINTESTINAL: No diarrhea, no nausea, no vomiting, no abdominal pain. Normoactive bowel sounds. NEUROLOGICAL: No headaches, no weakness, no numbness. HEMATOLOGICAL: Denies any bleeding or petechiae. GENITOURINARY: Denies any burning micturition, frequency, or urgency. MUSCULOSKELETAL/RHEUMATOLOGICAL: Denies any joint pain, swelling, or any muscle pain. ENDOCRINE: Denies any polyuria or polydipsia. Past Medical History Past Medical History: Rheumatoid Arthritis (RA) Additional Past Medical History / Comment(s): SVT, Fibromyalgia, Vertigo History of Any Multi-Drug Resistant Organisms: None Reported Past Surgical History: Orthopedic Surgery Additional Past Surgical History / Comment(s): rt foot Past Psychological History: No Psychological Hx Reported Smoking Status: Current every day smoker Past Alcohol Use History: Occasional Past Drug Use History: None Reported Medications and Allergies Home Medications Medication Instructions Recorded Confirmed Type Cetirizine HCl [Zyrtec] 10 mg PO DAILY 05/23/23 05/23/23 History Metoprolol Succinate (ER) [Toprol 100 mg PO DAILY 05/23/23 05/23/23 History Xl] Omeprazole [PriLOSEC] 40 mg PO DAILY 05/23/23 05/23/23 History Pregabalin [Lyrica] 100 mg PO DAILY 05/23/23 05/23/23 History Pregabalin [Lyrica] 100 mg PO DAILY PRN 05/23/23 05/23/23 History Semaglutide [Wegovy] 2.4 mg SQ WE 05/23/23 05/23/23 History Venlafaxine HCl ER [Effexor Xr] 150 mg PO DAILY 05/23/23 05/23/23 History amLODIPine [Norvasc] 2.5 mg PO DAILY 05/23/23 05/23/23 History clonazePAM [KlonoPIN] 0.5 mg PO DAILY PRN 05/23/23 05/23/23 History traMADol HCL 50 mg PO HS 05/23/23 05/23/23 History Allergies Allergy/AdvReac Type Severity Reaction Status Date / Time sulfamethoxazole Allergy Rash/Hives/ Verified 05/23/23 10:33 [From Bactrim] Itchy/SOB trimethoprim [From Bactrim] Allergy Rash/Hives/ Verified 05/23/23 10:33 Itchy/SOB Physical Exam Vitals: Vital Signs Temp Pulse Pulse Resp BP Pulse Ox 05/23/23 16:05 97.8 F 65 17 142/94 97 05/23/23 15:10 70 17 138/93 96 05/23/23 14:19 70 17 127/95 99 05/23/23 13:04 98.4 F 67 18 131/90 98 05/23/23 12:00 68 17 115/83 100 05/23/23 11:00 98.2 F 66 17 119/72 97 05/23/23 10:01 70 16 114/81 97 05/23/23 09:50 71 17 130/90 98 05/23/23 09:37 70 05/23/23 09:19 98.7 F 75 18 135/94 95 Intake and Output 05/23/23 05/23/23 05/23/23 06:59 14:59 22:59 Other: Weight 90.718 kg GENERAL: The patient is alert and oriented x3, not in any acute distress. Well developed, well nourished. HEENT: Pupils are round and equally reacting to light. EOMI. No scleral icterus. No conjunctival pallor. Normocephalic, atraumatic. No pharyngeal erythema. No thyromegaly. CARDIOVASCULAR: S1 and S2 present. No murmurs, rubs, or gallops. PULMONARY: Chest is clear to auscultation, no wheezing , no crackles. ABDOMEN: Soft, nontender, nondistended, normoactive bowel sounds. No palpable organomegaly. MUSCULOSKELETAL: No joint swelling or deformity. EXTREMITIES: No cyanosis, clubbing, or pedal edema. NEUROLOGICAL: Gross neurological examination did not reveal any focal deficits. SKIN: No rashes. no petechiae. Results CBC & Chem 7: 05/23/23 09:47 05/23/23 09:47 Labs: Abnormal Lab Results - Last 24 Hours (Table) 05/23/23 05/23/23 Range/Units 09:47 09:47 PT 9.6 L (10.0-12.5) sec Chloride 108 H (98-107) mmol/L Glucose 110 H (74-99) mg/dL Assessment and Plan Assessment: Chest pain, could be osteochondritis of the sternum. Rule out cardiac causes of coronary arteries disease Osteoarthritis with right hip pain and right bilateral knee pain Nicotine dependence Hypertension Plan: Continue with aspirin Check echocardiogram Cardiology consult Continue with pain management with topical capsaicin medication Labs and medication were reviewed.. Continue same treatment. Continue with symptomatic treatment. Resume home medication. Monitor labs and vitals. DVT and GI prophylaxis. Further recommendations as per clinical course of the patient DVT prophylaxis: Subcutaneous heparin GI Prophylaxis: Pepcid PT/OT: Pending Prognosis is guarded
[2023-05-23] MEDS: PREGABALIN 100 MG CAP PO PRN (18:01)
[2023-05-23] MEDS: traMADol 50 MG TAB PO SCH (21:30)
[2023-05-23] MEDS: HEPARIN SODIUM,PORCINE 5,000 UNIT/ML 1 ML VIAL SQ SCH (21:30)
[2023-05-24] MEDS: PANTOPRAZOLE 40 MG TABLET PO SCH (05:56)
[2023-05-24 07:17] VITALS: BP 137/90; PULSE 70; RESP 17; TEMP 97.9
[2023-05-24 09:07] LABS: Chol/HDL Ratio 4.61 Ratio; LDL Cholesterol,Calculated 174.1 mg/dL (0.0-131.0)
[2023-05-24] MEDS: ATORVASTATIN 20 MG TAB PO SCH (09:45)
[2023-05-24] MEDS: PREGABALIN 100 MG CAP PO SCH (09:45)
[2023-05-24] MEDS: METOPROLOL SUCCINATE (ER) 100 MG TAB.ER.24H PO SCH (09:46)
[2023-05-24] MEDS: amLODIPine 2.5 MG TAB PO SCH (09:46)
[2023-05-24] MEDS: VENLAFAXINE HCL ER 150 MG CAP PO SCH (09:46)
[2023-05-24] MEDS: ASPIRIN 325 MG TAB PO SCH (09:46)
--- NOTE | 2023-05-24 09:49 | CA ---
Transthoracic Echo Report Name: Marcela Gutierrez Age: 57 Gender: F : 1965 Exam Date: 05/23/2023 16:14 Exam Location: [facility] Ht (in): 66 Wt (lb): 200 Ordering Physician: Oneil Rendon DO Attending/Referring Phys: [employer] Namita Alcala RCS Procedure CPT: Indications: CP Cardiac Hx: Technical Quality: Fair Contrast 1: Total Dose (mL): Contrast 2: Total Dose (mL): MEASUREMENTS (Male / Female) Normal Values 2D ECHO LV Diastolic Diameter PLAX 4.7 cm 4.2 - 5.9 / 3.9 - 5.3 cm LV Systolic Diameter PLAX 3.3 cm IVS Diastolic Thickness 0.9 cm 0.6 - 1.0 / 0.6 - 0.9 cm LVPW Diastolic Thickness 1.0 cm 0.6 - 1.0 / 0.6 - 0.9 cm LV Relative Wall Thickness 0.4 RV Internal Dim ED PLAX 3.0 cm LVOT Diameter 2.0 cm LV Diastolic Volume MOD BP 90.4 cm??? 67 - 155 / 56 - 104 cm??? LV Systolic Volume MOD BP 29.3 cm??? 22 - 58 / 19 - 49 cm??? LV Ejection Fraction MOD BP 67.5 % >= 55 % LV Cardiac Index MOD BP 1812.7 cm???/min???m??? LV Diastolic Volume MOD 4C 77.5 cm??? LV Systolic Volume MOD 4C 30.3 cm??? LV Ejection Fraction MOD 4C 60.9 % LV Cardiac Index MOD 4C 1402.0 cm???/min???m??? LV Diastolic Length 4C 8.0 cm LV Systolic Length 4C 6.7 cm LV Diastolic Volume MOD 2C 100.2 cm??? LV Systolic Volume MOD 2C 26.2 cm??? LV Ejection Fraction MOD 2C 73.9 % LV Cardiac Index MOD 2C 2198.8 cm???/min???m??? LV Diastolic Length 2C 8.4 cm LV Systolic Length 2C 6.1 cm LA Volume 34.0 cm??? 18 - 58 / 22 - 52 cm??? LA Volume Index 16.3 cm???/m??? 16 - 28 cm???/m??? DOPPLER AV Peak Velocity 127.9 cm/s AV Peak Gradient 6.5 mmHg AV Mean Velocity 96.9 cm/s AV Mean Gradient 4.0 mmHg AV Velocity Time Integral 33.4 cm LVOT Peak Velocity 91.3 cm/s LVOT Peak Gradient 3.3 mmHg LVOT Velocity Time Integral 20.7 cm LVOT Stroke Volume 68.4 cm??? LVOT Stroke Volume Index 34.2 ml/m??? LVOT Cardiac Index 2031.6 cm???/min???m??? AV Area Cont Eq vti 2.0 cm??? AV Area Cont Eq pk 2.4 cm??? MV Area PHT 4.1 cm??? Mitral E Point Velocity 70.5 cm/s Mitral A Point Velocity 53.9 cm/s Mitral E to A Ratio 1.3 MV Deceleration Time 183.8 ms PV Peak Velocity 78.2 cm/s PV Peak Gradient 2.4 mmHg FINDINGS Left Ventricle Left ventricular ejection fraction is estimated at 60 %. Mildly increased posterior wall thickness. Left ventricular cavity size normal. No obvious regional wall motion abnormalities. Right Ventricle Normal right ventricular size and function. Unable to estimate right ventricular systolic function. Right Atrium Normal right atrial size. Left Atrium Normal left atrial size. Mitral Valve Structurally normal mitral valve. No evidence for mitral valve prolapse. No mitral stenosis. Mild mitral regurgitation. Aortic Valve Trileaflet aortic valve. No aortic valve stenosis. Mild aortic regurgitation. Tricuspid Valve Structurally normal tricuspid valve. No tricuspid stenosis. Trace tricuspid regurgitation. Pulmonic Valve Structurally normal pulmonic valve. No pulmonic stenosis. No pulmonic regurgitation. Pericardium No pericardial effusion. Aorta Normal size aortic root and proximal ascending aorta. CONCLUSIONS Normal LV size and systolic function. No significant abnormality on the Doppler exam. An echo free space anteriorly may be a fat pad but no significant pericardial effusion. Previewed by: Dr. Phong Berg MD (Electronically Signed) Final Date: 24 May 2023 09:48
--- NOTE | 2023-05-24 11:03 | P.CRDCN ---
History of Present Illness Consult date: 05/24/23 History of present illness: INPATIENT CONSULTATION REQUESTING PHYSICIAN: REASON FOR CONSULT: I was asked to see the patient regarding episode of chest pain HISTORY OF PRESENT ILLNESS: This patient presented to the emergency room with complaints of chest discomfort. Mostly on the right side of the sternum quality of the pain is very musculoskeletal. There is tenderness on applying some pressure over the sternum. This occurred while she was at rest. She did some physical activity about a week ago with her arms but has not done so in the last 48 hours. Quality of pain seems musculoskeletal. She has a known history of hypertension has been taking Ozempic type medications to lose weight. She has no documented diabetes. She has hyperlipidemia but has not been taking statin medications. Quality of pain is atypical no symptoms with physical activity. P hysical exam and EKG are both unremarkable. I am recommending that she should follow-up with her manager net upon discharge and have a stress test once her sternal tenderness gets better. She can use nonsteroidal and anti-inflammatory agents like Aleve or Tylenol for symptomatic pain. Blood pressure control is optimal I will add Lipitor and she can be discharged today 03 PAST MEDICAL HISTORY: History of rheumatoid arthritis, hypertension, atypical chest pain and negative stress test apparently in the last 3 years with her manager net Dr. Schumacher Please review the chart with other notes with regards to medications allergies and review of systems. PHYSICAL EXAMINATION: The patient appeared well nourished and normally developed. Vital signs as documented. Head exam is unremarkable. No scleral icterus or corneal arcus noted. Neck is without jugular venous distension, thyromegaly, or carotid bruits. Carotid upstrokes are brisk bilaterally. Lungs are clear to auscultation and percussion. Cardiac exam reveals the PMI to be normally sized and situated. Rhythm is regular. First and second heart sounds normal. No murmurs, rubs or gallops. Abdominal exam reveals normal bowel sounds, no masses, no organomegaly and no aortic enlargement. Extremities are nonedematous and both femoral and pedal pulses are normal. ADDITIONAL DATA: ASSESSMENT: #1 atypical musculoskeletal chest pain #2 history of hypertension #3 on weight loss medications #4 hypercholesterolemia PLAN: I am recommending that she should take symptomatic pain relief medications like nonsteroidals or Tylenol for her pain and once this gets better she should have a stress test as an outpatient through her manager net. Advised to resume statin will give her Lipitor 20 mg daily. Patient can be discharged. Thank you for the consult Past Medical History Past Medical History: Rheumatoid Arthritis (RA) Additional Past Medical History / Comment(s): SVT, Fibromyalgia, Vertigo, renal cyst (benign), monitoring eye for retinal detachment (has floaters) History of Any Multi-Drug Resistant Organisms: None Reported Past Surgical History: Orthopedic Surgery, Uterine Ablation Additional Past Surgical History / Comment(s): rt foot Past Anesthesia/Blood Transfusion Reactions: No Reported Reaction Additional Past Anesthesia/Blood Transfusion Reaction / Comment(s): No blood transfusions prior. Past Psychological History: No Psychological Hx Reported Smoking Status: Current some day smoker Past Alcohol Use History: Occasional Past Drug Use History: None Reported Medications and Allergies Home Medications Medication Instructions Recorded Confirmed Type Cetirizine HCl [Zyrtec] 10 mg PO DAILY 05/23/23 05/23/23 History Metoprolol Succinate (ER) [Toprol 100 mg PO DAILY 05/23/23 05/23/23 History Xl] Omeprazole [PriLOSEC] 40 mg PO DAILY 05/23/23 05/23/23 History Pregabalin [Lyrica] 100 mg PO DAILY 05/23/23 05/23/23 History Pregabalin [Lyrica] 100 mg PO DAILY PRN 05/23/23 05/23/23 History Semaglutide [Wegovy] 2.4 mg SQ WE 05/23/23 05/23/23 History Venlafaxine HCl ER [Effexor Xr] 150 mg PO DAILY 05/23/23 05/23/23 History amLODIPine [Norvasc] 2.5 mg PO DAILY 05/23/23 05/23/23 History clonazePAM [KlonoPIN] 0.5 mg PO DAILY PRN 05/23/23 05/23/23 History traMADol HCL 50 mg PO HS 05/23/23 05/23/23 History Allergies Allergy/AdvReac Type Severity Reaction Status Date / Time sulfamethoxazole Allergy Rash/Hives/ Verified 05/23/23 10:33 [From Bactrim] Itchy/SOB trimethoprim [From Bactrim] Allergy Rash/Hives/ Verified 05/23/23 10:33 Itchy/SOB Physical Exam Vitals: Vital Signs Temp Pulse Pulse Resp BP BP Pulse Ox 05/24/23 06:59 97.9 F 70 17 137/90 97 05/24/23 02:16 97.7 F 74 15 134/88 97 05/23/23 20:31 98.1 F 64 15 166/96 95 05/23/23 20:13 98.0 F 62 18 131/90 96 05/23/23 18:01 97.7 F 64 17 131/85 96 05/23/23 16:05 97.8 F 65 17 142/94 97 05/23/23 15:10 70 17 138/93 96 05/23/23 14:19 70 17 127/95 99 05/23/23 13:04 98.4 F 67 18 131/90 98 05/23/23 12:00 68 17 115/83 100 05/23/23 11:00 98.2 F 66 17 119/72 97 Intake and Output 05/23/23 05/24/23 05/24/23 22:59 06:59 14:59 Other: Voiding Method Toilet # Voids 1 2 Weight 90.718 kg Results 05/23/23 09:47 05/23/23 09:47 Cardiac Enzymes 05/23/23 05/23/23 05/23/23 Range/Units 09:47 09:47 12:41 AST 30 (14-36) U/L Troponin I <0.012 <0.012 (0.000-0.034) ng/mL 05/23/23 Range/Units 15:23 AST (14-36) U/L Troponin I <0.012 (0.000-0.034) ng/mL Lipids 05/23/23 Range/Units 09:47 Triglycerides 116.00 (0.00-149.00) mg/dL Cholesterol 252.00 H (0.00-200.00) mg/dL HDL Cholesterol 54.70 (40.00-60.00) mg/dL Cholesterol/HDL Ratio 4.61 Ratio Comprehensive Metabolic Panel 05/23/23 Range/Units 09:47 Sodium 139 (137-145) mmol/L Potassium 4.0 (3.5-5.1) mmol/L Chloride 108 H (98-107) mmol/L Carbon Dioxide 24 (22-30) mmol/L BUN 16 (7-17) mg/dL Creatinine 0.60 (0.52-1.04) mg/dL Glucose 110 H (74-99) mg/dL Calcium 9.0 (8.4-10.2) mg/dL AST 30 (14-36) U/L ALT 16 (4-34) U/L Alkaline Phosphatase 52 (38-126) U/L Total Protein 6.5 (6.3-8.2) g/dL Albumin 3.9 (3.5-5.0) g/dL Current Medications Generic Name Dose Route Start Last Admin Trade Name Freq PRN Reason Stop Dose Admin Acetaminophen 650 mg 05/23/23 13:13 Acetaminophen Tab 325 Mg Tab PO Q6HR PRN Fever and/ or Pain Amlodipine Besylate 2.5 mg 05/24/23 09:00 05/24/23 09:46 Amlodipine 2.5 Mg Tab PO 2.5 mg DAILY [facility] Administration Aspirin 325 mg 05/24/23 09:00 05/24/23 09:46 Aspirin 325 Mg Tab PO 325 mg DAILY [facility] Administration Atorvastatin Calcium 20 mg 05/24/23 09:00 05/24/23 09:45 Atorvastatin 20 Mg Tab PO 20 mg DAILY [facility] Administration Capsaicin 1 applic 05/23/23 16:00 05/24/23 09:46 Capsaicin 0.025% Cream 60 Gm Tube TOPICAL Not Given TID [facility] Protocol Clonazepam 0.5 mg 05/23/23 12:32 Clonazepam 0.5 Mg Tab PO DAILY PRN Anxiety Heparin Sodium (Porcine) 5,000 unit 05/23/23 21:00 05/24/23 09:46 Heparin Sodium,Porcine 5,000 Unit/Ml 1 Ml Vial SQ 5,000 unit Q12HR [facility] Administration Ibuprofen 400 mg 05/23/23 13:13 Ibuprofen 400 Mg Tab PO Q6HR PRN Pain Metoprolol Succinate 100 mg 05/24/23 09:00 05/24/23 09:46 Metoprolol Succinate (Er) 100 Mg Tab.Er.24h PO 100 mg DAILY [facility] Administration Nitroglycerin 0.4 mg 05/23/23 12:20 Nitroglycerin Sl Tabs 0.4 Mg Tab SUBLINGUAL Q5M PRN Chest Pain Pantoprazole Sodium 40 mg 05/24/23 07:30 05/24/23 05:56 Pantoprazole 40 Mg Tablet PO 40 mg [id number] [facility] Administration Pregabalin 100 mg 05/24/23 09:00 05/24/23 09:45 Pregabalin 100 Mg Cap PO 100 mg DAILY [facility] Administration Pregabalin 100 mg 05/23/23 12:32 05/23/23 18:01 Pregabalin 100 Mg Cap PO 100 mg DAILY PRN Administration Pain Tramadol HCl 50 mg 05/23/23 21:00 05/23/23 21:30 Tramadol 50 Mg Tab PO 50 mg HS [facility] Administration Venlafaxine HCl 150 mg 05/24/23 09:00 05/24/23 09:46 Venlafaxine Hcl Er 150 Mg Cap PO 150 mg DAILY [facility] Administration Intake and Output 05/23/23 05/24/23 05/24/23 22:59 06:59 14:59 Other: Voiding Method Toilet # Voids 1 2 Weight 90.718 kg 05/23/23 09:47 05/23/23 09:47
== END 2023-05-24 12:50 | disposition home or self-care (01) ==
LOC: EC 09:16 → 6NMEDSUR 12:21
PROVIDERS: ADMIT Internal Medicine; ATTEND Internal Medicine
DX: R07.89 Other chest pain (principal); E78.00 Pure hypercholesterolemia, unspecified; F17.210 Nicotine dependence, cigarettes, uncomplicated; M19.90 Unspecified osteoarthritis, unspecified site; I10 Essential (primary) hypertension; G89.29 Other chronic pain; M25.551 Pain in right hip; M25.562 Pain in left knee; M25.561 Pain in right knee; Z79.85 Long-term (current) use of injectable non-insulin antidiabetic drugs; Z79.899 Other long term (current) drug therapy; Z88.1 Allergy status to other antibiotic agents; Z88.2 Allergy status to sulfonamides
CPT/HCPCS: 96372 ×2; 96374; 96375; 99285; 36415; 93005; 93306; 85379; 80061; 80053; 83735; 84484; 85025; 85610; 85730; 71046; G0378 ×2; J2270; J1644 ×2; J1885

== ENCOUNTER 2024-05-07 09:31 | Emergency (ER) | payer OTHER ==
--- NOTE | 2024-05-07 09:54 | ED ---
ENT HPI - General Chief complaint: ENT Stated complaint: object in left ear Time Seen by Provider: 05/07/24 09:45 Source: patient, RN notes reviewed Mode of arrival: ambulatory Limitations: no limitations - History of Present Illness Initial comments: This is a 58-year-old female who presents to the emergency department for a foreign body sensation in her left ear. States that she was at a 4 days ago and they were listening to a lot of music. She then developed a buzzing sound in her ear during the music. This ended up resolving on its own shortly afterwards. In the middle of the night tonight she was woken up by what felt like something flapping or moving in her ear and she was concerned that there could be a bug in it. States that it lasted about 5 minutes and has not returned. Reports mild discomfort. Denies any dizziness or difficulty hearing. - Related Data Home Medications Medication Instructions Recorded Confirmed Cetirizine HCl [Zyrtec] 10 mg PO DAILY 05/23/23 05/23/23 Metoprolol Succinate (ER) [Toprol 100 mg PO DAILY 05/23/23 05/23/23 XL] Omeprazole [PriLOSEC] 40 mg PO DAILY 05/23/23 05/23/23 Pregabalin [Lyrica] 100 mg PO DAILY 05/23/23 05/23/23 Pregabalin [Lyrica] 100 mg PO DAILY PRN 05/23/23 05/23/23 Semaglutide [Wegovy] 2.4 mg SQ WE 05/23/23 05/23/23 Venlafaxine HCl ER [Effexor XR] 150 mg PO DAILY 05/23/23 05/23/23 amLODIPine [Norvasc] 2.5 mg PO DAILY 05/23/23 05/23/23 clonazePAM [KlonoPIN] 0.5 mg PO DAILY PRN 05/23/23 05/23/23 traMADol HCL 50 mg PO HS 05/23/23 05/23/23 Previous Rx's Medication Instructions Recorded Acetaminophen Tab [Tylenol] 650 mg PO Q6HR PRN tab 05/24/23 Aspirin EC [Ecotrin Low Dose] 81 mg PO DAILY 30 Days #30 tab 05/24/23 Atorvastatin [Lipitor] 20 mg PO DAILY #30 tab 05/24/23 Capsaicin Cream [Trixaicin Cream] 1 applic TOPICAL TID #1 each 05/24/23 Ibuprofen [Motrin] 400 mg PO Q6HR PRN 3 Days #6 tab 05/24/23 Allergies Allergy/AdvReac Type Severity Reaction Status Date / Time sulfamethoxazole Allergy Rash/Hives/ Verified 05/07/24 09:35 [From Bactrim] Itchy/SOB trimethoprim [From Bactrim] Allergy Rash/Hives/ Verified 05/07/24 09:35 Itchy/SOB Review of Systems ROS Statement: Those systems with pertinent positive or pertinent negative responses have been documented in the HPI. ROS Other: All systems not noted in ROS Statement are negative. Past Medical History Past Medical History: Rheumatoid Arthritis (RA) Additional Past Medical History / Comment(s): SVT, Fibromyalgia, Vertigo, renal cyst (benign), monitoring eye for retinal detachment (has floaters) History of Any Multi-Drug Resistant Organisms: None Reported Past Surgical History: Orthopedic Surgery, Uterine Ablation Additional Past Surgical History / Comment(s): rt foot Past Anesthesia/Blood Transfusion Reactions: No Reported Reaction Additional Past Anesthesia/Blood Transfusion Reaction / Comment(s): No blood transfusions prior. Past Psychological History: No Psychological Hx Reported Smoking Status: Current some day smoker Past Alcohol Use History: Occasional Past Drug Use History: None Reported General Exam Limitations: no limitations General appearance: alert, in no apparent distress Head exam: Present: atraumatic, normocephalic, normal inspection ENT exam: Present: TM's normal bilaterally, normal external ear exam Respiratory exam: Present: normal lung sounds bilaterally. Absent: respiratory distress, wheezes, rales, rhonchi, stridor Cardiovascular Exam: Present: regular rate, normal rhythm Neurological exam: Present: alert, oriented X3, CN II-XII intact Psychiatric exam: Present: normal affect, normal mood Skin exam: Present: warm, dry, intact, normal color. Absent: rash Course Vital Signs 05/07/24 09:32 Temperature 97.7 F Pulse Rate 111 H Respiratory 17 Rate Blood Pressure 160/100 O2 Sat by Pulse 99 Oximetry Medical Decision Making - Medical Decision Making This is a 58-year-old female who presents to the emergency department for a foreign body sensation in her left ear. Was pt. sent in by a medical professional or institution? @ -No Did you speak to anyone other than the patient for history? @ -No Did you review nursing and triage notes? @ -Yes, and I agree, it is accurate with regards to the patient's symptoms. Were old charts reviewed? @ -No Differential Diagnosis? @ -Foreign body, tinnitus, otitis media, middle ear myoclonus, this is not meant to be an all-inclusive list. EKG interpreted by me (3pts min.)? @ -Not obtained X-rays interpreted by me (1pt min.)? @ -Not obtained CT interpreted by me (1pt min.)? @ -Not obtained U/S interpreted by me (1pt. min.)? @ -Not obtained What testing was considered but not performed? (CT, X-rays, U/S, labs)? Why? @ -None What meds were considered but not given? Why? @ -None Did you discuss the management of the patient with other professionals? @ -No Did you reconcile home meds? @ -No Was smoking cessation discussed for >3mins.? @ -No Was critical care preformed (if so, how long)? @ -No Were there social determinants of health that impacted care today? How? (Homelessness, low income, unemployed, alcoholism, drug addiction, transportati on, low edu. Level, literacy, decrease access to med. care, senior living, rehab)? @ -No Was there de-escalation of care discussed even if they declined? (Discuss DNR or withdrawal of care, Hospice)? @ -No What co-morbidities impacted this encounter? (DM, HTN, Smoking, COPD, CAD, Cancer, CVA, Hep., AIDS, mental health diagnosis, sleep apnea, morbid obesity)? @ -None Was patient admitted / discharged? @ -Discharged. Physical examination did not reveal any foreign bodies or other irregularities. I did perform copious irrigation with warm water in the event there is anything hidden that needed to dislodge. Other than small pieces of earwax nothing came out. On reevaluation again, no foreign bodies or other i rregularities were identified. The cause of her presentation at this point is not entirely clear. She did not have the sensation while she was in the emergency department. It could be related to tinnitus or a middle ear myoclonus. Advised she follow-up with ENT for further evaluation. Patient discharged home in stable condition. Case discussed with ED attending Dr. Ny. Return precautions reviewed in depth, the patient is instructed to return to the emergency department with any new, worsening, or concerning symptoms. Patient verbalized understanding. Undiagnosed new problem with uncertain prognosis? @ -None Drug Therapy requiring intensive monitoring for toxicity (Heparin, Nitro, Insulin, Cardizem)? @ -None Were any procedures done? @ -None Diagnosis/symptom? @ -Buzzing in ear Acute, or Chronic, or Acute on Chronic? @ -Acute Uncomplicated (without systemic symptoms) or Complicated (systemic symptoms)? @ -Uncomplicated Side effects of treatment? @ -None Exacerbation, Progression, or Severe Exacerbation] @ -Not applicable Poses a threat to life or bodily function? @ -No Disposition Clinical Impression: Buzzing in ear Disposition: HOME SELF-CARE Instructions (If sedation given, give patient instructions): Tinnitus (ED) Additional Instructions: Return to the emergency department with any new, worsening, or concerning symptoms. Follow up with ENT. Is patient prescribed a controlled substance at d/c from ED?: No Referrals: Nonstaff,Physician [REFERRING] - 1-2 days Time of Disposition: 10:07
[2024-05-07 10:34] VITALS: BP 118/86; PULSE 93; RESP 20; TEMP 98.1
== END 2024-05-07 10:34 | disposition home or self-care (01) ==
LOC: EC 09:31
DX: H93.12 Tinnitus, left ear (principal); F17.200 Nicotine dependence, unspecified, uncomplicated; Z88.1 Allergy status to other antibiotic agents; Z88.2 Allergy status to sulfonamides
CPT/HCPCS: 99282